=== PATIENT | male | born 1955 | race Hispanic/Latino ===

== ENCOUNTER 2021-05-25 10:00 | Inpatient (IN) | payer OTHER ==
[~2021-05-25] VITALS: Ht 177.8 cm; Wt 115.2 kg
[~2021-05-25 10:00] MED LIST: ATOR10 PO
[2021-06-05 15:10] VITALS: BP 145/81
[2021-06-05] MEDS ORDERED: CHOL100040 PO (15:18)
[2021-06-05] MEDS ORDERED: MIRT-93 PO (15:18)
[2021-06-05] MEDS ORDERED: ROPI1TAB13 PO (15:18)
[2021-06-05] MEDS ORDERED: TAMS-1 PO (15:18)
[2021-06-05] MEDS ORDERED: BUSP10TA3 PO (15:18)
[2021-06-05] MEDS ORDERED: HYDR-4060 PO (15:18)
[2021-06-05] MEDS ORDERED: ATEN50TA PO (15:18)
[2021-06-05] MEDS ORDERED: SERT-440 PO (15:26)
[2021-06-08] VITALS (23 sets, daily range): BP systolic 94–136; BP diastolic 49–79
[2021-06-08] MEDS ORDERED: DEXAMETHASONE SOD PHOSPHATE 10MG/ML 1ML VIAL ONE (06:58)
[2021-06-08] MEDS ORDERED: SUCCINYLCHOLINE CHLORIDE 20 MG/ML 10 ML VIAL ONE (06:58)
[2021-06-08] MEDS ORDERED: LIDOCAINE PF 100MG/5ML (2%) SYRINGE 5ML ONE (06:58)
[2021-06-08] MEDS ORDERED: MIDAZOLAM HCL 1 MG/ML 2ML VIAL ONE (06:58)
[2021-06-08] MEDS ORDERED: GLYCOPYRROLATE 1 MG/5 ML SYRINGE ONE (06:58)
[2021-06-08] MEDS ORDERED: PROPOFOL 10 MG/ML 20ML VIAL IV ONE ×2 (06:58→08:15)
[2021-06-08] MEDS ORDERED: NEOSTIGMINE 5MG/5ML SYR IV ONE (06:59)
[2021-06-08] MEDS ORDERED: FENTANYL CITRATE PF 50 MCG/1 ML 2ML VIAL ONE (06:59)
[2021-06-08] MEDS ORDERED: ROCURONIUM 10MG/1ML SYR 10 MG/ML ML ONE ×2 (06:59→09:23)
[2021-06-08] MEDS ORDERED: ONDANSETRON 4MG INJ ONE (06:59)
[2021-06-08] MEDS ORDERED: ROPIVACAINE 0.5% 5MG/ML 30ML IJ ONE (07:01)
[2021-06-08] MEDS ORDERED: LACTATED RINGERS 1000ML 1,000 ML IV ONE (07:08)
[2021-06-08] MEDS ORDERED: CEFAZOLIN SODIUM 1 GM VIAL ONE (07:21)
[2021-06-08] MEDS ORDERED: TRANEXAMIC ACID 1000MG/10ML ONE ×2 (07:21→12:44)
[2021-06-08] MEDS: CEFAZOLIN SODIUM 1 GM VIAL IVP ONE ×2 (07:22→08:53)
[2021-06-08] MEDS ORDERED: CEFAZOLIN SODIUM 1 GM VIAL IRRIG ONE (09:27)
[2021-06-08] MEDS ORDERED: EPHEDRINE SULFATE 50 MG/ML AMPULE ONE ×2 (09:28→10:52)
[2021-06-08] MEDS ORDERED: PHENYLEPHRINE HCL 10 MG/ML 1ML VIAL IV ONE ×2 (10:02→11:29)
[2021-06-08] MEDS ORDERED: MEPERIDINE-PF 25 MG/ML SYG ONE (12:07)
[2021-06-08] MEDS ORDERED: POTASSIUM CHLORIDE 10% ELIXIR 20 MEQ/15 ML UDCUP PO PRN (12:30)
[2021-06-08] MEDS: ACETAMINOPHEN 500 MG TABLET PO SCH ×2 (12:30→21:57)
[2021-06-08] MEDS: 0.9%NACL 1000ML 1,000 ML IV SCH ×2 (12:30→22:30)
[2021-06-08] MEDS ORDERED: CALCIUM CARB 500MG PO PRN (12:30)
[2021-06-08] MEDS ORDERED: ONDANSETRON 4MG INJ IVP PRN (12:30)
[2021-06-08] MEDS ORDERED: TRAMADOL HCL 50 MG TABLET PO PRN (12:30)
[2021-06-08] MEDS ORDERED: LIDOCAINE HCL-MPF 1% 2ML VIAL IV PRN (12:30)
[2021-06-08] MEDS ORDERED: POTASSIUM CHLORIDE 20MEQ/100ML 100 ML IV PRN (12:30)
[2021-06-08] MEDS ORDERED: KCL 20 MEQ ERTAB PO PRN (12:30)
[2021-06-08] MEDS ORDERED: OXYCODONE HCL 5 MG TAB PO PRN (12:30)
[2021-06-08] MEDS ORDERED: FE FUMARATE/FA/MV, MIN COMB#15 1 TAB PO PRN (12:30)
[2021-06-08] MEDS ORDERED: DiphenhydrAMINE HCL 50 MG/ML VIAL IVP PRN (12:30)
[2021-06-08] MEDS: CEFAZOLIN SODIUM 1 GM VIAL IVP SCH (17:31)
[2021-06-08] MEDS: MIRTAZAPINE 15 MG TABLET PO SCH (21:55)
[2021-06-08] MEDS: BUSPIRONE HCL 5 MG TABLET PO SCH (21:55)
[2021-06-08] MEDS: TAMSULOSIN HCL 0.4 MG CAP.ER.24H PO SCH (21:56)
[2021-06-08] MEDS: ATORVASTATIN 10 MG TABLET PO SCH (21:56)
[2021-06-08] MEDS: CELECOXIB 200 MG CAP PO SCH (21:56)
[2021-06-08] MEDS: ROPINIROLE HCL 1 MG TABLET PO SCH (21:56)
[2021-06-08] MEDS: ASPIRIN 81 MG EC TAB PO SCH (21:56)
[2021-06-08] MEDS: FAMOTIDINE 20MG TAB PO SCH (21:56)
[2021-06-09] VITALS (7 sets, daily range): BP systolic 111–175; BP diastolic 56–84
[2021-06-09] MEDS: CEFAZOLIN SODIUM 1 GM VIAL IVP SCH (01:15)
[2021-06-09] MEDS: TEMAZEPAM 15 MG CAPSULE PO PRN (01:19)
[2021-06-09] MEDS: ACETAMINOPHEN 500 MG TABLET PO SCH ×3 (04:40→22:00)
[2021-06-09] MEDS: OXYCODONE HCL 5 MG TAB PO PRN ×3 (04:41→20:14)
[2021-06-09 05:48] LABS: HEMATOCRIT 36.2 % (42-54); MEAN CORPUSCULAR HEMOGLOBIN 29.1 pg (27.0-33.0); MEAN CORPUSCULAR HGB CONC 32.6 g/dL (32.0-36.0); MEAN CORPUSCULAR VOLUME 89.4 fL (79-99); RED BLOOD CELL COUNT(AUTO) 4.05 MIL/uL (4.50-6.20); RED CELL DISTRIBUTION WIDTH 13.5 % (11.0-15.5); WHITE BLOOD COUNT (AUTO) 15.2 K/uL (4.8-10.8)
[2021-06-09 05:57] LABS: CREATININE 1.1 mg/dL (0.5-1.5); POTASSIUM 4.2 mmol/L (3.5-5.1)
[2021-06-09] MEDS: KETOROLAC 15MG/ML VIAL (15MG/ML) IV PRN (06:24)
[2021-06-09] MEDS: 0.9%NACL 1000ML 1,000 ML IV SCH (08:30)
[2021-06-09] MEDS: CELECOXIB 200 MG CAP PO SCH ×2 (08:44→20:09)
[2021-06-09] MEDS: ASPIRIN 81 MG EC TAB PO SCH ×2 (08:44→20:09)
[2021-06-09] MEDS: POLYETHYLENE GLYCOL 3350 17 GM POWD.PACK PO SCH (08:44)
[2021-06-09] MEDS: ROPINIROLE HCL 1 MG TABLET PO SCH ×2 (08:44→20:10)
[2021-06-09] MEDS: FAMOTIDINE 20MG TAB PO SCH ×2 (08:44→20:09)
[2021-06-09] MEDS: BUSPIRONE HCL 5 MG TABLET PO SCH ×3 (08:44→20:13)
[2021-06-09] MEDS: SERTRALINE HCL 50 MG TABLET PO SCH (08:48)
[2021-06-09] MEDS: ATENOLOL 50 MG TABLET PO SCH (08:48)
[2021-06-09] MEDS ORDERED: TAMSULOSIN HCL 0.4 MG CAP.ER.24H PO SCH (09:00)
[2021-06-09] MEDS: MIRTAZAPINE 15 MG TABLET PO SCH (20:08)
[2021-06-09] MEDS: TAMSULOSIN HCL 0.4 MG CAP.ER.24H PO SCH (20:09)
[2021-06-09] MEDS: ATORVASTATIN 10 MG TABLET PO SCH (20:09)
[2021-06-10 04:19] VITALS: BP 119/66
[2021-06-10] MEDS: OXYCODONE HCL 5 MG TAB PO PRN ×3 (05:54→20:21)
[2021-06-10] MEDS: ACETAMINOPHEN 500 MG TABLET PO SCH ×3 (05:54→22:47)
[2021-06-10 08:00] VITALS: BP 119/77
[2021-06-10] MEDS: ASPIRIN 81 MG EC TAB PO SCH ×2 (08:06→20:20)
[2021-06-10] MEDS: BUSPIRONE HCL 5 MG TABLET PO SCH ×3 (08:06→20:20)
[2021-06-10] MEDS: CELECOXIB 200 MG CAP PO SCH ×2 (08:06→20:20)
[2021-06-10] MEDS: ATENOLOL 50 MG TABLET PO SCH (08:09)
[2021-06-10] MEDS: SERTRALINE HCL 50 MG TABLET PO SCH (08:09)
[2021-06-10] MEDS: FAMOTIDINE 20MG TAB PO SCH ×2 (08:10→20:20)
[2021-06-10] MEDS: POLYETHYLENE GLYCOL 3350 17 GM POWD.PACK PO SCH (08:10)
[2021-06-10] MEDS: ROPINIROLE HCL 1 MG TABLET PO SCH ×2 (08:10→20:20)
[2021-06-10 12:00] VITALS: BP 95/57
[2021-06-10 16:00] VITALS: BP 105/62
[2021-06-10] MEDS: MIRTAZAPINE 15 MG TABLET PO SCH (20:20)
[2021-06-10] MEDS: TAMSULOSIN HCL 0.4 MG CAP.ER.24H PO SCH (20:20)
[2021-06-10] MEDS: ATORVASTATIN 10 MG TABLET PO SCH (20:20)
[2021-06-10] MEDS: TEMAZEPAM 15 MG CAPSULE PO PRN (20:21)
[2021-06-10 20:30] VITALS: BP 110/72
[2021-06-10] MEDS: KETOROLAC 15MG/ML VIAL (15MG/ML) IV PRN (22:53)
[2021-06-10 23:49] VITALS: BP 97/62
[2021-06-11 04:00] VITALS: BP 105/56
[2021-06-11] MEDS: ACETAMINOPHEN 500 MG TABLET PO SCH (06:00)
[2021-06-11 08:00] VITALS: BP_SYST 106; BP_SYST 123; BP_DIAS 56; BP_DIAS 72
[2021-06-11] MEDS: BUSPIRONE HCL 5 MG TABLET PO SCH (08:45)
[2021-06-11] MEDS: CELECOXIB 200 MG CAP PO SCH (08:46)
[2021-06-11] MEDS: POLYETHYLENE GLYCOL 3350 17 GM POWD.PACK PO SCH (08:46)
[2021-06-11] MEDS: SERTRALINE HCL 50 MG TABLET PO SCH (08:46)
[2021-06-11] MEDS: FAMOTIDINE 20MG TAB PO SCH (08:46)
[2021-06-11] MEDS: ASPIRIN 81 MG EC TAB PO SCH (08:46)
[2021-06-11] MEDS: ATENOLOL 50 MG TABLET PO SCH (08:46)
[2021-06-11] MEDS: ROPINIROLE HCL 1 MG TABLET PO SCH (08:47)
[2021-06-11 11:53] VITALS: BP 118/67
[2021-06-11] MEDS ORDERED: BISACODYL 10 MG SUPP.RECT RC PRN (12:30)
== END 2021-06-11 14:45 | disposition home health service (06) | DRG 483 ==
LOC: EDSTATUS 10:00 → OBSVTOIN 06-08 06:21 → INTOOBSV 06-08 06:21 → DAHIP 06-08 06:21 → 3CH 06-08 14:05
PROVIDERS: ADMIT Orthopaedic Surgery; ATTEND Orthopaedic Surgery
PROC: 3E0T33Z Introduction of Anti-inflammatory into Peripheral Nerves and Plexi, Percutaneous Approach (ICD-10-PCS; 2021-06-08)
PROC: 0RRJ00Z Replacement of Right Shoulder Joint with Reverse Ball and Socket Synthetic Substitute, Open Approach (ICD-10-PCS; principal; 2021-06-08 08:22)
PROC: 3E0T3BZ Introduction of Anesthetic Agent into Peripheral Nerves and Plexi, Percutaneous Approach (ICD-10-PCS; 2021-06-08 08:22)
DX: M75.121 Complete rotator cuff tear or rupture of right shoulder, not specified as traumatic (principal); M66.811 Spontaneous rupture of other tendons, right shoulder; M25.611 Stiffness of right shoulder, not elsewhere classified; Z20.822 Contact with and (suspected) exposure to COVID-19; I10 Essential (primary) hypertension; E78.00 Pure hypercholesterolemia, unspecified; G89.29 Other chronic pain; D64.9 Anemia, unspecified; G47.33 Obstructive sleep apnea (adult) (pediatric); E66.9 Obesity, unspecified; Z96.653 Presence of artificial knee joint, bilateral; Z68.36 Body mass index [BMI] 36.0-36.9, adult; Z88.8 Allergy status to other drugs, medicaments and biological substances; Z83.3 Family history of diabetes mellitus; Z82.49 Family history of ischemic heart disease and other diseases of the circulatory system
CPT/HCPCS: 36415; 73030; 80048; 85027; 87088; 87635; 87641; 97039; A4565; C1776; G0378; J0330; J0690; J1100; J1885; J2001; J2175; J2250; J2370; J2405; J2704; J2710; J2795; J3010; J3490; J7030; J7120